=== PATIENT | female | born 1950 | race Caucasian/White ===

== ENCOUNTER → 2020-10-03 | Outpatient (CLI) | payer MEDICARE, OTHER | LOC: KOH-I 11:22 | DX: R55 Syncope and collapse (principal); I65.23 Occlusion and stenosis of bilateral carotid arteries | CPT/HCPCS: 93880 ==

== ENCOUNTER → 2021-08-24 | Outpatient (CLI) | payer MEDICARE | LOC: EXRD 09:10 | DX: M17.12 Unilateral primary osteoarthritis, left knee (principal) | CPT/HCPCS: 77080 ==